=== PATIENT | female | born 1975 | race Caucasian/White ===

== ENCOUNTER 2023-02-17 11:03 | Emergency (ER) | payer OTHER, SELFPAY ==
--- NOTE | 2023-02-17 11:27 | ED.URI ---
HPI - URI/Sore Throat General Chief Complaint: Upper Respiratory Infection Stated Complaint: congestion,rt ear discomfort Time Seen by Provider: 02/17/23 11:37 Source: patient, RN notes reviewed and old records reviewed Mode of arrival: ambulatory Limitations: no limitations History of Present Illness HPI Narrative: 47-year-old female presents to the [facility] of sinus congestion and right ear pain. Patient reports symptoms started on Reports taking a COVID and flu test at [facility], reports as negative. Patient states her symptoms started back in November. States that since November she has had issues on and off, mid January she had to stay with her sister and they have a lot of animals which causes her congestion to get a lot worse. One week ago started with some more severe right ear pain. States that when the pain gets bad she sometimes gets dizzy had a pressure in the front of her head. Denies any loss of consciousness. Denies fevers. States that she started taking a nose spray, unknown name, 3 days ago Denies any chest pain, shortness of breath. Related Data Home Medications Medication Instructions Recorded Confirmed levothyroxine 50 mcg tablet 50 mcg PO DAILY 02/25/19 02/25/19 levothyroxine 25 mcg tablet 25 mcg PO DAILY 03/26/19 03/26/19 atomoxetine 60 mg capsule 60 mg PO 02/17/23 fluoxetine 40 mg capsule 40 mg DAILY 02/17/23 02/17/23 losartan 50 mg-hydrochlorothiazide 1 tablet 02/17/23 12.5 mg tablet nortriptyline 10 mg capsule 10 mg PO DAILY 02/17/23 02/17/23 rizatriptan 10 mg disintegrating mg 02/17/23 02/17/23 tablet Allergies Allergy/AdvReac Type Severity Reaction Status Date / Time adhesive tape Allergy Unknown unknown Verified 02/17/23 11:43 morphine Allergy Unknown HEADACHES Verified 02/17/23 11:43 POWDER IN GLOVES Allergy Unknown RASH Uncoded 02/17/23 11:43 Review of Systems Review of Systems: All systems reviewed & are unremarkable except as noted in HPI and below Constitutional: Constitutional: Reports no additional constitutional complaints Eyes: Eyes: Reports no additional eye complaints ENT: Reports as per HPI Cardiovascular: Cardiovascular: Reports no additional cardiovascular complaints, Denies chest pain and Denies dyspnea Respiratory: Respiratory: Reports as per HPI, Reports chest congestion, Reports cough and Denies dyspnea Gastrointestinal: Gastrointestinal: Reports no additional gastrointestinal complaints, Denies abdominal pain, Denies nausea and Denies vomiting Musculoskeletal: Musculoskeletal: Reports no additional musculoskeletal complaints Integumentary/Breasts: Skin/Breast: Reports system reviewed and no additional complaints, except as docu Neurologic: Reports system reviewed and no additional complaints, except as documented Psychiatric: Psychiatric: Reports no additional psychiatric complaints Allergic/Immunologic: Allergic/Immunologic: Reports no additional allergic/immunologic complaints [facility] Past Medical History Medical History Anxiety Carpal tunnel syndrome Hypothyroid Hypothyroidism Murmur Restless legs Rosacea Vitamin D deficiency Surgical History Surgical History H/O hernia repair Hx of tonsillectomy Family History Family History (System 04/09/19 @ 14:35 by [place]) Mother Diabetes mellitus Heart disease COPD (chronic obstructive pulmonary disease) Father Lung cancer Other Breast cancer Social History Social History Smoking status: Former smoker Comments At the time of my signature, I reviewed and agree with the nursing past medical, surgical, social, and family history. There is no relevant family history pertinent to the patient complaint. Exam Const: General: cooperative, healthy appearing, comfortable, no acute distress, well developed, alert and wel
[2023-02-17 11:44] VITALS: BP 140/76; PULSE 79; RESP 18; TEMP 36.3; O2SAT 100
== END 2023-02-17 12:34 | disposition home or self-care (01) ==
PROVIDERS: Emergency Provider Nurse Practitioner; PCP Family Medicine
DX: J32.9 Chronic sinusitis, unspecified (principal); R09.82 Postnasal drip; H65.01 Acute serous otitis media, right ear; E03.9 Hypothyroidism, unspecified; G25.81 Restless legs syndrome; F41.9 Anxiety disorder, unspecified
CPT/HCPCS: 99213; G0463